=== PATIENT | male | born 1945 | race Caucasian/White ===

== ENCOUNTER → 2017-01-02 | Outpatient (CLI) | payer MEDICARE ==
[~2017-01-02] MED LIST: DIAZ5; TOPR50TA PO
[2017-01-02 13:02] LABS: AUTOMATED NEUTROPHIL # 1.2 TH/MM3 (1.8-7.7); BASOPHIL % 0.4 % (0.0-2.0); EOSINOPHIL # 0.1 TH/MM3 (0-0.4); HEMO FLAGS DIFF FINAL; LYMPH % 41.3 % (9.0-44.0); LYMPHOCYTE # 1.2 TH/MM3 (1.0-4.8); MEAN CELL VOLUME 91.1 FL (80.0-100.0); MEAN CORPUSCULAR HEMOGLOBIN 30.5 PG (27.0-34.0); MEAN CORPUSCULAR HGB CONC 33.5 % (32.0-36.0); MONO % 14.2 % (0.0-8.0); NEUT % 41.1 % (16.0-70.0); PLATELET COUNT 221 TH/MM3 (150-450); RED BLOOD COUNT 4.83 MIL/MM3 (4.50-5.90); WHITE BLOOD COUNT 2.8 TH/MM3 (4.0-11.0)
[2017-01-02 13:33] LABS: ANION GAP 8 MEQ/L (5-15); AST (GOT) 16 U/L (15-37); BICARBONATE 26.4 MEQ/L (21.0-32.0); BLOOD UREA NITROGEN 12 MG/DL (7-18); CHLORIDE 98 MEQ/L (98-107); GLOMERULAR FILTRATION RATE 84 ML/MIN (>89); GLUCOSE,FASTING 85 MG/DL (74-99); POTASSIUM 4.4 MEQ/L (3.5-5.1); SODIUM (NA) 132 MEQ/L (136-145)
[2017-01-02 13:38] LABS: ALKALINE PHOSPHATASE 46 U/L (45-117); ALT (GPT) 28 U/L (12-78); HDL CHOLESTEROL 46.5 MG/DL (40.0-60.0); LDL CHOLESTEROL 144 MG/DL (0-99); TOTAL BILIRUBIN ADULT 0.6 MG/DL (0.2-1.0)
== END ==
LOC: PLAB 10:47
PROVIDERS: ATTEND Family Medicine
DX: E78.2 Mixed hyperlipidemia (principal); F41.1 Generalized anxiety disorder; I10 Essential (primary) hypertension
CPT/HCPCS: 36415; 80053; 80061; 85025